=== PATIENT | female | born 2005 | race African-American/Black ===

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

== ENCOUNTER 2023-01-16 16:20 | Outpatient (REF) | payer MEDICAID, SELFPAY ==
[2023-01-16 17:35] LABS: *AMPHETAMINES SCREEN URINE Negative (Negative); *BARBITURATES SCREEN URINE Negative (Negative); *BENZODIAZEPINES SCREEN URINE Negative (Negative); Cannabinoids THC Negative (Negative); Cocaine Screen,Urine Negative (Negative); METHADONE URINE SCREEN Negative (Negative); OPIATES URINE SCREEN Negative (Negative)
[2023-01-16 17:38] LABS: Tricyclic Antidepressants Negative (Negative)
[2023-01-24 16:26] LABS: Buprenorphine Negative ng/mL (Cutoff: 5.0)
== END 2023-01-16 16:21 | disposition home or self-care (01) ==
LOC: LBO 16:20
PROVIDERS: PCP Nurse Practitioner Pediatrics; Referring Provider Advanced Practice Midwife; Visit Provider Advanced Practice Midwife
DX: Z34.93 Encounter for supervision of normal pregnancy, unspecified, third trimester (principal); Z36.85 Encounter for antenatal screening for Streptococcus B; Z3A.36 36 weeks gestation of pregnancy
CPT/HCPCS: 80307; 80348; 87081

== ENCOUNTER 2023-01-30 15:59 | Outpatient (CLI) | payer MEDICAID, SELFPAY ==
[2023-01-30 16:08] VITALS: BP 143/86; PULSE 89
[2023-01-30 16:44] LABS: HCT 34.7 % (36.0-46.0); MCH 33.2 pg (27.0-33.0); MCHC 34.6 % (32.0-36.0); MCV 96 fL (80-95); MPV 9.3 fL (8.0-11.0); Platelet Count 245 10^3/uL (130-400); RBC 3.61 10^6/uL (3.93-5.22); RDW 13.2 % (11.7-14.6); RDW-SD 46.5 fL; WBC 10.67 10^3/uL (4.4-10.8)
[2023-01-30 16:56] LABS: COMMENT (LAB VIEW ONLY) 33.79 mg/dL; PROTEIN 6.1 mg/dL; Prot/Crea Ur Ratio 0.18
[2023-01-30 17:01] VITALS: BP 141/85; PULSE 89; TEMP 36.4
[2023-01-30 17:03] LABS: ALT 17 U/L (14-59); AST 14 U/L (15-37); Albumin 2.7 g/dL (3.4-5.0); Alkaline Phosphatase 156 U/L (46-116); Anion Gap 8.7 mmol/L (3-11); BUN 8 mg/dL (7-18); Bilirubin, Total 0.2 mg/dL (0.2-1.0); CO2 25.3 mmol/L (21.0-32.0); CREATININE 0.6 mg/dL (0.55-1.02); Calcium 8.4 mg/dL (8.5-10.1); Chloride 105 mmol/L (98-107); Estimated GFR 132.52 (mL/min/1.73m2); Glucose 88 mg/dL (74-106); Potassium 3.3 mmol/L (3.5-5.1); Sodium 139 mmol/L (136-145); Total Protein 6.4 g/dL (6.4-8.2)
[2023-01-30 17:14] VITALS: BP 140/89; PULSE 85
--- NOTE | 2023-01-30 17:30 | PDOC.NST_ITS ---
Date of service: 01/30/23 Time of Service: 17:30 NST Evaluation Reason for NST Reasons for Nonstress Test: GESTATIONAL HYPERTENSION Gestational Age Gestational Age in Weeks and Days: 38 Weeks and 1Days Test and Monitor Explained Test/Monitor Explained: Test Explained, Monitor Explained and Patient Verbalized Understanding Vital Signs Blood Pressure: 141/85 Pulse: 89 Temperature: 97.5 F Urine Results Urine Protein: Negative Urine Ketones: Negative Urine Glucose: Negative Urine Blood: Negative NST Information Time on Monitor: 15:53 Date off Monitor: 01/30/23 Time off Monitor: 16:15 NST Interventions: PO Hydration Contraction Frequency: 0 NST Evaluation Patient States Movement: Present FHR Baseline: 145 Variability: Moderate 6-25 bpm Accelerations: 15x15 Decelerations: None NST Results: Reactive Note N/A NST Note Note: Pre-e labs drawn and are nml, prot/creat ratio is 0.18 Mild range BP 140's over 80's over two hour period, pt denies severe features NST reactive, no labor, intact membranes Pt is scheduled for IOL next week at [facility] [place] Consult phone call to Paola Saldaña @ [facility] [place] Plan is disharge to home, return in the morning for BP check If mild range pressures persist, pt to report to [facility] [place] tomorrow for IOL NST Reviewed and Verified by: Jimena Sam
[2023-01-30 17:32] VITALS: BP 141/85; PULSE 89; TEMP 36.4
== END 2023-01-30 17:50 | disposition home or self-care (01) ==
LOC: BCD 16:02 → OBS 16:05
PROVIDERS: PCP Nurse Practitioner Pediatrics; Visit Provider Advanced Practice Midwife
DX: O13.3 Gestational [pregnancy-induced] hypertension without significant proteinuria, third trimester (principal); Z3A.38 38 weeks gestation of pregnancy
CPT/HCPCS: 59025; 80053; 85027; 82565; 84156

== ENCOUNTER 2023-01-31 09:48 | Observation (INO) | payer MEDICAID, SELFPAY ==
[2023-01-31] VITALS (7 sets, daily range): BP systolic 137–163; BP diastolic 94–119; PULSE 76–120; TEMP 36.7
--- NOTE | 2023-01-31 10:22 | W.PM.OBHPL1 ---
Date of service: 01/31/23 Time of Service: 10:23 Assessment and Plan Assessment and plan (1) Gestational hypertension affecting first : Status: Acute Assessment and plan: Pt had mild range BP at routine 38 wk check up yesterday, all labs nml and NST reactive. Consult accomplished with Dr. Jaky Saldaña at [facility] yesterday afternoon, pt discharged to home, recheck BP this morning. Pt presented as planned, reports she had a headache last night but not now. Severe range BP's obtained x2 on evaluation, consult with Dr. Saldaña @ [facility] again, pt to be transferred by ambulance to [facility] after stabilization per severe range BP procedures and protocols. Dr. Taveras consulted inhouse as well, will begin stabilization and transfer procedures: Labs repeated now, r/o pre-eclampsia Nifedipine 10 PO now IV site access, LR @ 75 ml/hr Labetolol per protocol Magnesium 4 gm bolus then 2 gm/hr per protocols Ambulance transfer arrangements OB-HPI Labor/Delivery History of Present Illness Reason for Visit: NST Chief Complaint: Other (scheduled BP check this morning). FAN Calculator Estimated Delivery Date Method Current WG Current Estimate 02/12/23 LMP (Uncertain) 38w 2d History of Present Expected Delivery Route/Plan - CNM FOB - John Hager (his second child) BB yes to circ support will be FOB, maybe pt's mom Aggie GBS negative Specific Issues/Plan 1. Bleeding at 9 weeks.- subchorionic hemorrhage 2. Transfer of care from [facility] @ 30 wks 3. Cleft lip - US at [facility], follow up US scheduled at [facility] 12/27 (see scanned notes) 3a. Pediatrics prefers patient deliver at [facility], pt aware and accepts 4. Elevated 1-hr GTT -177 3hr is nml: 69/127/141/76 5. Genital HSV - acyclovir PRN- Offer prophylaxis at 36 weeks. 6. Depression, anxiety and ADHD - Taking adderall and sertraline daily. 7. Former smoker- quit with 8. positive risk factors of gestational hypertension- nulliparity and descent- not currently prescribed ASA. 9. History of precordial catch syndrome - normal cardiac workup prior to . Assessment: History Reviewed & Current Narrative: Pt had mild range BP at routine 38 wk check up yesterday, all labs nml and NST reactive. Consult accomplished with Dr. Jaky Saldaña at [facility] yesterday afternoon, plan to discharge pt to home, recheck BP this morning. Pt presented as planned, reports she had a headache last night but not now. Severe range BP's obtained x2 on evaluation, consult with Dr. Saldaña @ [facility] again, pt to be transferred by ambulance to [facility] after stabilization per severe range BP procedures and protocols. Dr. Taveras consulted inhouse as well, will begin stabilization and transfer procedures. Informed Consent Informed Consent: Other (transfer to [facility] for severe range BP gestational HTN, r/o Pre-eclampsia) Review of Systems Narrative: Completed and noncontributory other than HPI PFSH All Active Problems (Updated 01/31/23 @ 10:32 by Jimena Sam) Gestational hypertension affecting first (Acute) cleft lip and palate affecting management of mother in [place] , antepartum (Acute) Intrauterine in teenager (Acute) Former tobacco use (Acute) Marijuana smoker in remission (Acute) (Acute) Depression (Chronic) ADHD (attention deficit hyperactivity disorder), inattentive type (Acute) Adderall working well; Methylphenidate: caused difficulties with sleep at lowest dose For day shift: Vyvanse 30mg, Adderall 20mg at noon worked well For night supervisor: Adderall 20mg BID worked well BMI < 5th percentile in child (Acute) History of attempted suicide (Acute) Anxiety (Chronic) Healthy Child on Routine Physical Examination (Acute) Precordial catch syndrome (Acute) chronic intermittent chest pain. seen by [facility] Cardiology as well as Welfare Eligibility Worker in [place] with normal workup. no follow up needed Medical History Dysmenorrhea in adolescent Family History Mother , age 50 Anemia Migraines Hypoglycemia Ovarian cancer in her 50s. Cervical cancer Father PTSD (post-traumatic stress disorder) Other Mental disorder Social History Smoking/Tobacco Use Status: Former Tobacco Use Tobacco: How many years used: 2 Quit status: has quit before Smoking risk assessment performed?: Yes Alcohol Intake: current Alcohol Intake frequency: a few times a week Drug use: Daily Substance use type: former substance user Date of last use: marijuana prior to Pets and animals: Yes (3 dogs, cows, chickens at foster home, outdoor cat.) Pets and animals: cat(s), dog(s) and farm animals Sexually active: Yes Do you think of yourself as: bisexual Current gender identity: female Do you feel safe at home: Yes Do you feel safe in your relationship?: Yes Female Reproductive History Menstrual Duration of menses: 6-7 days control method: condoms History History 1 Para 0 Hx # Term Pregnancies 0 Multiple births 0 Hx # Pregnancies 0 Ectopic pregnancies 0 AB induced 0 Hx Number of Living Children 0 AB spontaneous 0 Meds Allergies and Home Medications Allergies Allergy/AdvReac Type Severity Reaction Status Date / Time red clover AdvReac Intermediate Nose Verified 01/30/23 15:30 itchy, difficulty breathing jigna AdvReac stomach Uncoded 01/30/23 15:30 cramps Home Medications Medication Instructions Recorded Confirmed Type sertraline 100 mg tablet 100 mg PO DAILY #30 tabs 12/16/22 01/30/23 Rx prenat.vits,bouchra,cxi-dzcy-orrno 1 tab PO DAILY 12/19/22 01/30/23 History valacyclovir 1 gram tablet 1,000 mg PO BID #40 tabs 01/16/23 01/30/23 Rx (Valtrex) Exam Physical Exam Vital signs: Pulse BP 91 H 153/94 H 01/31/23 10:16 01/31/23 10:16 Vital Signs Reviewed: Yes Narrative: Repeat BP readings include 164/100 and 163/119 Constitutional Constitutional: no acute distress, thin and cooperative Detailed Labor and Delivery Exam Dilation: 0 (per vaginal exam yesterday) Fetus A Heart Rate Baseline: 135 Monitor Accelerations: 15 X 15 Monitor Decelerations: None Variability: Moderate (6-25 BPM) Categories: Category I HEENT Exam HEENT Exam: Normal Neck Exam Neck Exam: Normal Chest/Brest/Axilla Exam Chest Exam: Normal Breast Exam Breast Exam: Not Done Respiratory Exam Respiratory Exam: Normal Cardiovascular Exam Cardiovascular Exam: Abnormal (hypertension) Abdominal Exam Abdominal Exam: Normal (Gravid, 38 wk size, nontender) Rectal Exam Rectal Exam: Not Done Exam Exam: Not Done Extremities Exam Extremities Exam: Normal Back/Spine/Pelvis Exam Back Exam: Normal Skin Exam Skin Exam: Normal Neurological Exam Neurological Exam: Normal (no hyper-reflexia noted, negative clonus) Psychiatric Exam Psychiatric Exam: Normal Results Results Group Beta Strep: Negative Risk Assessment Risk for Shoulder Dystocia Historical/Initial OB: NEGATIVE FOR: Pelvic Abnormality, Pre- BMI>30, Previous Shoulder Dystocia or Previous Macrosomia Increased Risk?: No Risk for Pre-Eclampsia Yes, if one or more: NEGATIVE FOR: Hx Pre-E/Gest HTN, Chronic HTN, Multiple Gestation, Pre-gestational DM, Renal Disease, Systemic Lupus or APA Syndrome Yes, if 2 or more: POSITIVE FOR: Nulliparity and ethinicty Risk for Post- Hemorrhage Initial: NEGATIVE FOR: Multiple Gestation, Previous PPH, Known Clotting Deficiency, Grand Multiparity or Anticoagulation At Risk?: Yes Risks Reviewed Risks Reviewed Upon Admission: Yes
[2023-01-31] MEDS: NIFEdipine 10 MG CAP PO (10:29)
[2023-01-31 10:33] LABS: HCT 37.5 % (36.0-46.0); MCH 33.2 pg (27.0-33.0); MCHC 34.7 % (32.0-36.0); MCV 96 fL (80-95); MPV 9.3 fL (8.0-11.0); Platelet Count 265 10^3/uL (130-400); RBC 3.91 10^6/uL (3.93-5.22); RDW 13.2 % (11.7-14.6); RDW-SD 46.4 fL; WBC 11.12 10^3/uL (4.4-10.8)
[2023-01-31] MEDS: Lactated Ringers 1,000 ML 75 ML IV (10:41)
[2023-01-31 10:48] LABS: ALT 21 U/L (14-59); AST 18 U/L (15-37); Albumin 2.9 g/dL (3.4-5.0); Alkaline Phosphatase 171 U/L (46-116); Anion Gap 10.6 mmol/L (3-11); BUN 11 mg/dL (7-18); Bilirubin, Total 0.3 mg/dL (0.2-1.0); CO2 23.4 mmol/L (21.0-32.0); CREATININE 0.5 mg/dL (0.55-1.02); Chloride 104 mmol/L (98-107); Estimated GFR 138.47 (mL/min/1.73m2); Glucose 81 mg/dL (74-106); LDH 172 U/L (81-234); Potassium 3.6 mmol/L (3.5-5.1); Sodium 138 mmol/L (136-145); Total Protein 7.1 g/dL (6.4-8.2)
[2023-01-31] MEDS: MAGNESIUM SULFATE 4 GM/100 ML BAG IVPB (10:54)
--- NOTE | 2023-01-31 10:56 | W.OBNST ---
Date of service: 01/31/23 Time of Service: 10:56 NST Evaluation Reason for NST Reasons for Nonstress Test: GESTATIONAL HYPERTENSION Gestational Age Gestational Age in Weeks and Days: 38 Weeks and 2Days Test and Monitor Explained Test/Monitor Explained: Test Explained, Monitor Explained and Patient Verbalized Understanding Vital Signs Blood Pressure: 158/104 Pulse: 93 Temperature: 98.1 F NST Information Date on Monitor: 01/31/23 Time on Monitor: 09:15 Date off Monitor: 01/31/23 Time off Monitor: 10:56 Total Time on Monitor: 101 NST Interventions: PO Hydration NST Evaluation Patient States Movement: Present FHR Baseline: 130 Variability: Moderate 6-25 bpm Accelerations: 15x15 Decelerations: None NST Results: Reactive Note N/A NST Note NST Reviewed and Verified by: Jimena Sam
[2023-01-31 11:04] LABS: Obstetrics Magnesium 1.5 mg/dL (1.8-2.4)
--- NOTE | 2023-01-31 13:37 | DSE_ITS ---
Date of service: 01/31/23 Time of Service: 11:00 DS: Diagnosis Discharge Diagnosis (1) Gestational hypertension affecting first : Status: Acute Discharge Plan Disposition Patient Disposition: Transfer-Acute Inpatient Care Specific Acute Inpt Facility: [facility] Condition: Stable Discharge Details Reason For Visit: NST Admit Date/Time: 01/31/23 09:48 Admit Provider: Jimena Sam Attending Provider: Jimena Sam Primary Care Provider: Virgil Roberts Hospital Course Hospital Course: Pt arrived on time for scheduled BP check at 38 weeks, severe range BP obtained x2, consult/transfer call made to [facility] Dr. Saldaña, she accepted transfer, BP stabilization and Magnesium infusion initiated prior to pt transport. Home Meds and New Rx's Prescriptions: No Action valacyclovir [Valtrex] 1 gram tablet 1,000 mg PO BID Qty: 40 0RF Rx Instructions: Take 1000 mg tablet BID x 5 days then 1 tablet daily x 30 days. sertraline 100 mg tablet 100 mg PO DAILY Qty: 30 2RF Rx Instructions: Take 1 tab daily prenat.vits,bouchra,yuo-ebrc-ooctf Tablet 1 tab PO DAILY Discharge Instructions Activity:: bedrest Equipment/Supplies:: No Equipment Needed Diet:: Other Discharge Orders Discharge Orders: Discharge Order (Routine); Ordered 01/31/23 Ordered By: Jimena Sam OB:DS Summary Contraception Discussed Contraception Discussed: No, Status at Discharge Functional status at discharge: independent ambulation Overall status at discharge: patient is not back to baseline Mental Status: mental status grossly normal (appropriately upset and concerned about high BP) Speech and Movement: speech and movement normal and speech clear Mood: anxious mood Affect: normal affect Exam Physical Exam Vital signs: Pulse BP 86 139/99 H 01/31/23 10:46 01/31/23 10:46 Vital Signs Reviewed: Yes Constitutional Constitutional: no acute distress, thin and cooperative HEENT Exam HEENT Exam: Normal Neck Exam Neck Exam: Normal Respiratory Exam Respiratory Exam: Normal Cardiovascular Exam Cardiovascular Exam: Abnormal (hypertension) Abdominal Exam Comments: Nontender gravid abd Fundal Exam Comment: Gravid uterus Rectal Exam Rectal Exam: Not Done Extremities Exam Extremity Exam: Normal Back/Spine/Pelvis Exam Back Exam: Normal Skin Exam Skin Exam: Normal Neurological Exam Neurological Exam: Normal (no hyper-reflexia noted, negative clonus) Psychiatric Exam Psychiatric Exam: Normal PFSH All Active Problems (Updated 01/31/23 @ 10:32 by Jimena Sam) Gestational hypertension affecting first (Acute) cleft lip and palate affecting management of mother in [place] , antepartum (Acute) Intrauterine in teenager (Acute) Former tobacco use (Acute) Marijuana smoker in remission (Acute) (Acute) Depression (Chronic) ADHD (attention deficit hyperactivity disorder), inattentive type (Acute) Adderall working well; Methylphenidate: caused difficulties with sleep at lowest dose For day shift: Vyvanse 30mg, Adderall 20mg at noon worked well For night time babysitter: Adderall 20mg BID worked well BMI < 5th percentile in child (Acute) History of attempted suicide (Acute) Anxiety (Chronic) Healthy Child on Routine Physical Examination (Acute) Precordial catch syndrome (Acute) chronic intermittent chest pain. 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 no follow up needed Medical History Dysmenorrhea in adolescent Family History Mother , age 50 Anemia Migraines Hypoglycemia Ovarian cancer in her 50s. Cervical cancer Father PTSD (post-traumatic stress disorder) Other Mental disorder Social History Smoking/Tobacco Use Status: Former Tobacco Use Tobacco: How many years used: 2 Quit status: has quit before Smoking risk assessment performed?: Yes Alcohol Intake: current Alcohol Intake frequency: a few times a week Drug use: Daily Substance use type: former substance user Date of last use: marijuana prior to Pets and animals: Yes (3 dogs, cows, chickens at foster home, outdoor cat.) Pets and animals: cat(s), dog(s) and farm animals Sexually active: Yes Do you think of yourself as: bisexual Current gender identity: female Do you feel safe at home: Yes Do you feel safe in your relationship?: Yes Female Reproductive History Menstrual Duration of menses: 6-7 days control method: condoms History History 1 Para 0 Hx # Term Pregnancies 0 Multiple births 0 Hx # Pregnancies 0 Ectopic pregnancies 0 AB induced 0 Hx Number of Living Children 0 AB spontaneous 0 DS: Data Vitals/I&O Vitals and I&O: Vital Signs Pulse 86 01/31/23 10:46 Blood Pressure 139/99 H 01/31/23 10:46 Data Completed and Pending Labs on day of discharge: Labs from last 24 hours 01/31/23 01/31/23 01/31/23 10:20 10:20 10:20 WBC 11.12 H RBC 3.91 L Hgb 13.0 Hct 37.5 MCV 96 H MCH 33.2 H MCHC 34.7 RDW 13.2 Plt Count 265 MPV 9.3 Sodium 138 Potassium 3.6 Chloride 104 Carbon Dioxide 23.4 Anion Gap 10.6 BUN 11 Creatinine 0.5 L Est GFR (CKD-EPI 2020) 138.47 Glucose 81 Calcium 9.0 Magnesium 1.5 L Total Bilirubin 0.3 AST 18 ALT 21 Alkaline Phosphatase 171 H Lactate Dehydrogenase 172 Total Protein 7.1 Albumin 2.9 L
--- NOTE | 2023-01-31 15:26 | NUR.NOTE ---
Nursing Note: Patient off unit at 1110 to be transferred to [facility] [place] by Roberto. Myron Cuenca RN to accompany patient.
== END 2023-01-31 11:10 | disposition short-term general hospital (02) ==
LOC: OBS 13:37 → BCD 15:36 → OBS 15:37
PROVIDERS: Admitting Provider Advanced Practice Midwife; PCP Nurse Practitioner Pediatrics; Visit Provider Advanced Practice Midwife
DX: O13.3 Gestational [pregnancy-induced] hypertension without significant proteinuria, third trimester (principal); O98.313 Other infections with a predominantly sexual mode of transmission complicating pregnancy, third trimester; O99.343 Other mental disorders complicating pregnancy, third trimester; F41.8 Other specified anxiety disorders; O35.AXX0 Maternal care for other (suspected) fetal abnormality and damage, fetal facial anomalies, not applicable or unspecified; Z3A.38 38 weeks gestation of pregnancy
CPT/HCPCS: 36415; 80053; 85027; 59025; 83615; 83735; J3475

== ENCOUNTER 2023-11-24 14:02 | Outpatient (REF) | payer MEDICAID, SELFPAY ==
[2023-11-24 17:23] LABS: *AMPHETAMINES SCREEN URINE Negative (Negative); *BARBITURATES SCREEN URINE Negative (Negative); *BENZODIAZEPINES SCREEN URINE Negative (Negative); Cannabinoids THC Negative (Negative); Cocaine Screen,Urine Negative (Negative); METHADONE URINE SCREEN Negative (Negative); OPIATES URINE SCREEN Negative (Negative)
[2023-11-24 17:27] LABS: Tricyclic Antidepressants Negative (Negative)
[2023-11-24 17:51] LABS: COMMENT (LAB VIEW ONLY) 47.71 mg/dL; PROTEIN 10.9 mg/dL; Prot/Crea Ur Ratio 0.22
[2023-11-26 12:22] LABS: Chlamydia Result Negative (Negative); GC Result Negative (Negative)
[2023-11-28 13:10] LABS: Fentanyl Interpretation Negative.; Fentanyl by LC-MS/MS Not Detected; Norfentanyl by LC-MS/MS Not Detected
[2023-12-01 08:52] LABS: Buprenorphine Negative ng/mL (Cutoff: 5.0); Norbuprenorphine Negative ng/mL (Cutoff: 2.5)
== END 2023-11-24 14:03 | disposition home or self-care (01) ==
LOC: LBN 14:02
PROVIDERS: Advanced Practice Midwife; PCP Nurse Practitioner Pediatrics; Visit Provider Advanced Practice Midwife
DX: Z34.92 Encounter for supervision of normal pregnancy, unspecified, second trimester (principal); O09.292 Supervision of pregnancy with other poor reproductive or obstetric history, second trimester
CPT/HCPCS: 80307; 80348; 87491; 87591; 80354; 82565; 84156; 87086

== ENCOUNTER 2023-11-24 14:11 | Outpatient (CLI) | payer MEDICAID, SELFPAY ==
[2023-11-24 15:17] LABS: Panorama Kit Sent via Fed Ex
[2023-11-24 15:22] LABS: HCT 38.3 % (36.0-46.0); HGB 13.1 g/dL (11.2-15.7); MCH 32.8 pg (27.0-33.0); MCHC 34.2 % (32.0-36.0); MCV 96 fL (80-95); Platelet Count 361 10^3/uL (130-400); RBC 3.99 10^6/uL (3.93-5.22); RDW 12.2 % (11.7-14.6); RDW-SD 42.4 fL; WBC 10.04 10^3/uL (4.4-10.8)
[2023-11-24 15:44] LABS: ALT 13 U/L (14-59); AST 13 U/L (15-37); Albumin 3.6 g/dL (3.4-5.0); Alkaline Phosphatase 66 U/L (46-116); BUN 7 mg/dL (7-18); Bilirubin, Total 0.3 mg/dL (0.2-1.0); CREATININE 0.6 mg/dL (0.55-1.02); Calcium 9.4 mg/dL (8.5-10.1); Chloride 103 mmol/L (98-107); Estimated GFR 132.52 (mL/min/1.73m2); Glucose 68 mg/dL (74-106); Potassium 3.3 mmol/L (3.5-5.1); Sodium 139 mmol/L (136-145); Total Protein 7.7 g/dL (6.4-8.2)
[2023-11-24 22:14] LABS: Hepatitis B Surface Ag Negative (Negative)
[2023-11-24 22:41] LABS: HIV-1/2 Ag & Ab Screen Negative (Negative)
[2023-11-24 22:46] LABS: Hepatitis C Ab w Rflx HCV PCR Negative (Negative)
[2023-11-26 13:42] LABS: Toxoplasma Ab, IgG Negative (Negative); Toxoplasma Ab, IgM Negative (Negative); Toxoplasma IgG Value <3 IU/mL
[2023-11-27 11:55] LABS: Varicella IgG Antibody Positive (See Note)
[2023-11-27 11:58] LABS: Rubella IgG Ab (UVM) Positive (See Note)
[2023-11-27 21:02] LABS: Syphilis IgG w/Reflex Nonreactive (Nonreactive)
== END 2023-11-24 14:12 | disposition home or self-care (01) ==
PROVIDERS: PCP Nurse Practitioner Pediatrics; Visit Provider Advanced Practice Midwife
DX: Z34.01 Encounter for supervision of normal first pregnancy, first trimester (principal)
CPT/HCPCS: 80053; 85027; 86787; 86803; 86850; 86900; 86901; 87340; 87389; 86762; 86777; 86778; 86780

== ENCOUNTER 2024-03-05 04:58 | Outpatient (CLI) | payer MEDICAID, SELFPAY ==
[2024-03-05 11:34] LABS: HCT 40.9 % (36.0-46.0); HGB 13.8 g/dL (11.2-15.7); MCH 33.1 pg (27.0-33.0); MCHC 33.7 % (32.0-36.0); MCV 98 fL (80-95); Platelet Count 295 10^3/uL (130-400); RBC 4.17 10^6/uL (3.93-5.22); RDW 12.2 % (11.7-14.6); RDW-SD 44.2 fL; WBC 12.81 10^3/uL (4.4-10.8)
[2024-03-05 11:44] LABS: Glucose,1 Hr (Glucola) 94 mg/dL (80-140)
== END 2024-03-05 04:59 | disposition home or self-care (01) ==
LOC: LBO 04:58
PROVIDERS: PCP Nurse Practitioner Pediatrics; Visit Provider Advanced Practice Midwife
DX: Z34.93 Encounter for supervision of normal pregnancy, unspecified, third trimester (principal); Z3A.28 28 weeks gestation of pregnancy
CPT/HCPCS: 36415; 82950; 85027

== ENCOUNTER → 2024-03-25 04:08 | Outpatient (CLI) | payer MEDICAID, SELFPAY ==
--- NOTE | 2024-03-25 08:00 | DI.US_ITS ---
Exam(s) US OB JOAQUIN WEIGHT EXAM: US OB JOAQUIN WEIGHT CLINICAL HISTORY: pregnancyh/o preeclampsia,O09.299. TECHNIQUE: Transabdominal obstetrical ultrasound performed. COMPARISON: US POCUS EXAM from 10/12/2023 FINDINGS: Number of fetuses: 1 position: BEECH Placental location: There is a grade 1 anterior placenta. No evidence of previa. BIOMETRIC DATA: BPD: 8.13cm, 32weeks 5days HC: 29.85cm, 33weeks AC: 28.73cm, 32weeks 5days FL: 6.2cm, 32weeks 1day EFW: 2,006.81g, 4lb 7.5oz, 58.6% Composite Age: 32weeks 5days FAN: 05/15/2024 Heart Rate: 153bpm Amniotic fluid index: 16.06cm. The largest pocket measures 6.0 cm. IMPRESSION: 1. Single live intrauterine gestation as above. 2. Estimated weight is 2007gms. This is the 59th percentile. 3. Amniotic fluid index is 16.1 cm. The largest pocket measures 6.0 cm. DATA REPOSITORY:
== END ==
PROVIDERS: PCP Nurse Practitioner Pediatrics; Visit Provider Advanced Practice Midwife
DX: O09.293 Supervision of pregnancy with other poor reproductive or obstetric history, third trimester (principal); O32.1XX0 Maternal care for breech presentation, not applicable or unspecified; Z3A.32 32 weeks gestation of pregnancy
CPT/HCPCS: 76816

== ENCOUNTER 2024-04-22 11:27 | Outpatient (REF) | payer MEDICAID, SELFPAY | END 2024-04-22 11:28 | disposition home or self-care (01) | LOC: LBN 11:27 | PROVIDERS: PCP Nurse Practitioner Pediatrics; Visit Provider Advanced Practice Midwife | DX: N85.8 Other specified noninflammatory disorders of uterus (principal); Z34.93 Encounter for supervision of normal pregnancy, unspecified, third trimester; Z3A.36 36 weeks gestation of pregnancy | CPT/HCPCS: 87081; 87086; 87480; 87510; 87660 ==

== ENCOUNTER 2024-05-14 01:00 | Inpatient (IN) | payer MEDICAID, SELFPAY ==
[2024-05-14] VITALS (9 sets, daily range): BP systolic 107–123; BP diastolic 56–81; PULSE 57–71; RESP 16–20; TEMP 36.5–36.9; O2SAT 99
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
[2024-05-14] MEDS: Oxytocin 10 UNITS/ML VIAL IM (03:02)
[2024-05-14] MEDS: Acetaminophen 325 MG TAB 650 MG PO ×4 (03:03→22:35)
[2024-05-14] MEDS: Ibuprofen 600 MG TAB PO ×3 (03:03→22:34)
--- NOTE | 2024-05-14 05:22 | W.OBDELIVERY ---
Date of service: 05/14/24 Time of Service: : OB Labor/ Delivery Information Baby A Delivery Delivery Method: Spontaneaous Presentation: Cephalic Cephalic Position: Vertex Vertex Position: Right Occipital Anterior Cord Description-Baby A: 3 Vessels and Nuchal Cord ( delivered through loop of nuchal cord) Amniotic Fluid: Clear Estimated Blood Loss: 100 ml Delivery Outcome: Liveborn Infant Transferred: Remains with Mother Note: Pt arrived to unit in w/c with involuntary bearing down, assisted to bed where exam reveals full dilation, intact membranes and +2 station, FHT 120's. A few minutes later SROM of clear fluid occurred followed by with pt in left lateral position, controlled of vigorous male over intact perineum, nuchal cord was loose and infant delivered through the cord loop, shoulders coming easily, infant to mother's arms immediately. Cord ceased pulsating and was clamped then cut by FOB, cord blood collected, [place] placenta delivered intact with 3VC, fundus firm below umbilicus and rubra was minimal. Inspection of vulva and vaginal for no lacerations other than superficial periurethral and introital abrasions, not bleeding and not repaired, strong family bonding observed. Apgars 9/9, weight 3175 gms. Providers Nurse Pediatric Immunologist: Jimena Sam Fire Extinguisher Repairer Inspector: Yuko Elizabeth Nurse: Meme Headley Other: only 1 nurse and biscuit packer at delivery Labor/Delivery Information Number of Babies in Womb: 1 Steroids Given: None Reason Steroids Not Administered: N/A Group Beta Strep: Negative Antibiotics Administered: No Rubella Status: Immune Blood Type: O+ Varicella Immunity: Immune Medication in Delivery: none Maternal Complications: None Shoulder Dystocia: No Stages of Labor Onset of Labor Date: 05/14/24 Onset of Labor Time: 00:09 Complete Dilatation Date: 05/14/24 Complete Dilatation Time: 01:01 Labor - Stage 1 Duration: 52 minutes ROM Baby A: 05/14/24 ROM Baby A: 01:02 ROM Total Time- Baby A: [id number] Delivery Date-Baby A: 05/14/24 Infant Delivery Time-Baby A: 01:06 Labor Stage 2 Duration: 5 minutes Placenta Delivery Date-Baby A: 05/14/24 Placenta Delivery Time-Baby A: 01:15 Labor-Stage 3 Duration: 9 minutes Total Length of Labor-Baby A: 57 minutes Placenta Cultured: No Placenta Status: Delivered Baby A Gender: Male Gestational Status: Term (39-41.6 wks) Gestational Age in Weeks/Days: 39 Weeks and 1 Days weight: 7 lb Weight Comment: 3175 gms Length-Baby A: 19.5 in Head Circumference-Baby A: 13.39 in Score-1 Minute Interval(Baby A) Heart Rate-1 minute: 100 BPM or Greater Respiratory Effort- 1 minute: Spontaneous/Strong Cry Muscle Tone-1 minute: Active Movement Reflex Response-1 minute: Prompt Response Color-1 minute: Bluish Hands or Feet Total Score-1 minute: 9 Score-5 Minute Interval(Baby A) Heart Rate- 5 minute: 100 BPM or Greater Respiratory Effort-5 minute: Spontaneous/Strong Cry Muscle Tone-5 minute: Active Movement Reflex Response-5 minute: Prompt Response Color-5 minute: Bluish Hands or Feet Total Score- 5 minute: 9
[2024-05-14] MEDS: Dibucaine 1% 28 GM TUBE TP (07:36)
[2024-05-14] MEDS: Hamamelis Leaf/Glycerin 100 EACH BOX PR (07:36)
[2024-05-14] MEDS: Docusate Sodium 100 MG CAP PO ×2 (14:31→22:34)
--- NOTE | 2024-05-14 20:21 | NUR.NOTE ---
Nursing Note:1939, This RN received report from Suman and assumed care of pt and her .
[2024-05-15] MEDS: Acetaminophen 325 MG TAB 650 MG PO ×2 (01:56→07:31)
[2024-05-15 04:00] VITALS: BP 112/68; PULSE 62; RESP 16; TEMP 36.6
[2024-05-15] MEDS: Ibuprofen 600 MG TAB PO (04:24)
[2024-05-15 07:30] VITALS: BP 112/75; PULSE 60; RESP 12; TEMP 36.8
[2024-05-15] MEDS: Docusate Sodium 100 MG CAP PO (07:31)
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
[2024-05-15] MEDS: Sertraline 50 MG TAB PO (11:00)
== END 2024-05-15 13:20 | disposition home or self-care (01) | DRG 806 ==
PROVIDERS: Admitting Provider Advanced Practice Midwife; PCP Nurse Practitioner Pediatrics; Visit Provider Advanced Practice Midwife
DX: O99.344 Other mental disorders complicating childbirth (principal); O98.32 Other infections with a predominantly sexual mode of transmission complicating childbirth; Z37.0 Single live birth; O99.324 Drug use complicating childbirth; O62.3 Precipitate labor; Z3A.39 39 weeks gestation of pregnancy; O69.81X0 Labor and delivery complicated by cord around neck, without compression, not applicable or unspecified; O71.82 Other specified trauma to perineum and vulva; O75.89 Other specified complications of labor and delivery; A60.09 Herpesviral infection of other urogenital tract; F12.91 Cannabis use, unspecified, in remission; Z82.79 Family history of other congenital malformations, deformations and chromosomal abnormalities; M25.351 Other instability, right hip; F41.8 Other specified anxiety disorders; F90.0 Attention-deficit hyperactivity disorder, predominantly inattentive type
CPT/HCPCS: J2590

== ENCOUNTER 2024-10-30 16:05 | Outpatient (REF) | payer MEDICAID, SELFPAY ==
[2024-11-01 12:20] LABS: Chlamydia Result Negative (Negative); GC Result Negative (Negative)
== END 2024-10-30 16:06 | disposition home or self-care (01) ==
LOC: LBN 16:05
PROVIDERS: Visit Provider Advanced Practice Midwife
DX: N94.9 Unspecified condition associated with female genital organs and menstrual cycle (principal); N93.8 Other specified abnormal uterine and vaginal bleeding; Z11.3 Encounter for screening for infections with a predominantly sexual mode of transmission
CPT/HCPCS: 87491; 87591; 87480; 87510; 87660

== ENCOUNTER 2024-12-24 13:37 | Outpatient (REF) | payer MEDICAID, SELFPAY ==
--- NOTE | 2024-12-24 13:30 | PAPFT_PTH ---
PATIENT: Ifrah Lowery LOC: [facility] U#:[id number] AGE/SX: 18/F ROOM: RE12/24/[address]: Lelia Rios NP : 2005 BED: DIS: 12/24/2024 SPEC #: [id number] RECD: 12/24/24 17:59 STATUS: ABDIRAHMAN GOMEZ #: [id number] GLADIS: 12/24/24 13:[address]: Blanca ANTON,Lelia DEPT: [facility] Cytology RECD BY: Brunilda Hilario ENTERED: 12/24/24 18:00 SP TYPE: PAPFT OT DR: Unknown,Unknown Tissues: 1 - CX/ENDOCX FOR PAP SMEARS Procedures: PAP THIN PREP/[facility] Screening Comments: [id number]
== END 2024-12-24 13:38 | disposition home or self-care (01) ==
LOC: LBN 13:37
PROVIDERS: Visit Provider Nurse Practitioner Women's Health
DX: Z12.4 Encounter for screening for malignant neoplasm of cervix (principal)
CPT/HCPCS: 88142

== ENCOUNTER 2025-04-02 11:40 | Outpatient (CLI) | payer MEDICAID, SELFPAY ==
[2025-04-02 12:19] LABS: HCG Quant, Pregnancy 433 mIU/mL (1-3)
== END 2025-04-02 11:41 | disposition home or self-care (01) ==
LOC: LBO 11:41
PROVIDERS: Visit Provider Advanced Practice Midwife
DX: O20.9 Hemorrhage in early pregnancy, unspecified (principal)
CPT/HCPCS: 36415; 84702

== ENCOUNTER 2025-04-02 11:45 | Outpatient (CLI) | payer MEDICAID, SELFPAY ==
--- NOTE | 2025-04-02 11:46 | DI.US_ITS ---
Exam(s) US OB 1ST TRIMESTER EXAM: US OB 1ST TRIMESTER CLINICAL HISTORY: r/o ectopic, O20.9 Hemorrage in early ,Vaginal bleeding. TECHNIQUE: Transabdominal and transvaginal pelvic ultrasound was performed using standard protocol. COMPARISON: US US OB JOAQUIN WEIGHT from 03/25/2024 FINDINGS: UTERUS: Position: Anteverted. Size: 9.1 long by 4.5 AP by 5.5 transverse cm Endometrium: 0.9 cm. Normal for patient's menstrual status. There is no evidence of an intrauterine g estational sac. Myometrium: Unremarkable. Cervix: Unremarkable. OVARIES: Right: 3.2 x 1.7 x 3.0 cm Cyst or mass: No suspicious cystic or solid masses. Left: 3.5 x 1.9 x 2.3 cm Cyst or mass: No suspicious cystic or solid masses. DOPPLER: Color: Symmetric and uniform flow to both ovaries. CUL-DE-SAC: Free fluid: There is a small amount of free fluid in the cul-de-sac. Other: There is no evidence of an adnexal mass to suggest an ectopic . IMPRESSION: 1. Normal-appearing uterus with endometrial stripe within normal limits. 2. Unremarkable bilateral ovaries. 3. No evidence of an intrauterine gestational sac. 4. No adnexal masses are seen to suggest an ectopic . DATA REPOSITORY:
== END 2025-04-02 12:05 ==
LOC: DI 11:46
PROVIDERS: Visit Provider Advanced Practice Midwife
DX: O20.9 Hemorrhage in early pregnancy, unspecified (principal)
CPT/HCPCS: 76801

== ENCOUNTER 2025-04-19 05:37 | Outpatient (CLI) | payer MEDICAID, SELFPAY ==
[2025-04-19 11:30] LABS: HCG Quant, Pregnancy 2 mIU/mL (1-3)
== END 2025-04-19 05:38 | disposition home or self-care (01) ==
LOC: BCD 05:41
PROVIDERS: Visit Provider Advanced Practice Midwife
DX: O03.9 Complete or unspecified spontaneous abortion without complication (principal)
CPT/HCPCS: 84702

== ENCOUNTER 2025-11-11 14:21 | Outpatient (REF) | payer SELFPAY ==
[2025-11-12 13:38] LABS: Chlamydia Result Negative (Negative); GC Result Negative (Negative)
== END 2025-11-11 14:22 | disposition home or self-care (01) ==
LOC: LBN 14:21
PROVIDERS: Visit Provider Nurse Practitioner Women's Health
DX: Z11.3 Encounter for screening for infections with a predominantly sexual mode of transmission (principal)
CPT/HCPCS: 87491; 87591